=== PATIENT | female | born 1955 | race Caucasian/White ===

== ENCOUNTER → 2019-04-02 | Outpatient (CLI) | payer BC ==
--- NOTE | 2019-04-02 13:47 | PCVCIMAG ---
APPROVED REPORT Study performed: 04/02/2019 13:14:19 Exam: Stress Echocardiogram Indication: Abnormal calcium score Patient Location: Echo lab Stress Nurse: Nicolette Doolye RN Status: routine Ht: 5 ft 4 in HR: 78 bpm BP: 130/80 mmHg Rhythm: NSR Procedure The patient underwent an Exercise Stress Test using the Hermelindo Protocol. Blood pressure, heart rate, and EKG were monitored. An Echocardiogram was performed by overhead door technician in four stages in quad fashion. At peak stress, four selected images were obtained and placed side by side with resting images for comparison. Stress Test Details Stress Test: Exercise stress testing was performed using a Hermelindo protocol. HR Resting HR: 78 bpmMax Heart Rate (APMHR): 157 bpm Max HR Achieved: 169 bpmTarget HR (85% APMHR): 133 bpm % of APMHR: 107 Recovery HR: 95 bpm HR response to stress: Normal HR response to stress BP Resting BP: 130/80 mmHg Max BP: 168/74 mmHg Recovery BP: 144/74 mmHg BP response to stress: Normal blood pressure response to stress. ECG Resting ECG: Sinus Rhythm Stress ECG: Sinus Rhythm Recovery ECG: Sinus Rhythm Clinical Reason for Termination: Maximal effort Exercise duration: 8 min sec Highest Stage Achieved: Stage 3: 3.4 mph at 14% grade. Exercise capacity: 10.10 METs Overall Exercise Capacity for Age: Normal Pre-Stress Echo The resting Echocardiogram showed normal left ventricular contractility with an estimated Ejection Fraction of about 55-60%. Normal wall motion in all segments on baseline images. Post-Stress Echo The stress Echocardiogram showed normal left ventricular contractility with an estimated Ejection Fraction of about 60-65%. Normal augmentation of wall motion in all segments on post stress images. Conclusion Clinical Response: Non-ischemic Exercise Capacity: Average Stress ECG Response: Non-ischemic Stress Echo Images: Non-ischemic The left ventricle is normal in size and wall thickness in both the rest and stress images. Mild tricuspid regurgitation. Pulmonary artery pressure is 41mmhg. Sclerotic aortic valve. Trace mitral regurgitation. Other Information Study Quality: Adequate <Conclusion> The left ventricle is normal in size and wall thickness in both the rest and stress images. Mild tricuspid regurgitation. Pulmonary artery pressure is 41mmhg. Sclerotic aortic valve. Trace mitral regurgitation.
== END | disposition home or self-care (01) ==
LOC: PCVCIMAG 12:53
PROVIDERS: ATTEND Internal Medicine Cardiovascular Disease
DX: I08.2 Rheumatic disorders of both aortic and tricuspid valves (principal); I10 Essential (primary) hypertension; E11.9 Type 2 diabetes mellitus without complications
CPT/HCPCS: 93325; 93351